=== PATIENT | female | born 1975 | race Caucasian/White ===

== ENCOUNTER 2020-01-05 10:38 | Outpatient (CLI) | payer OTHER, SELFPAY ==
--- NOTE | 2020-01-05 10:43 | MM_ITS ---
WS: [id number] SCREENING DIGITAL MAMMOGRAM WITH CAD HISTORY: SCREENING COMPARISON: 12/17/2018 and 12/04/2017 Bilateral CC and MLO views submitted. Computer aided detection analyzed. Breast composition: The breasts are heterogeneously dense, which may obscure small masses. Significan t portions of the lateral breast have not been included on this examination. On the LEFT MLO projecti on is an asymmetry posteriorly in the LEFT breast overlying the pectoralis muscle which needs further evaluation. The amount of compression may not be adequate. MM/[place] [id number] IMPRESSION: BI-RADS: 0-Incomplete: Need additional imaging evaluation FOLLOW UP: Need Additional Imaging Bilateral exaggerated lateral CC views are recommended in an attempt to include more breast tissue. Additional spot compression view LEFT MLO posteriorly kristin cent to the chest wall and bilateral ML views recommended. Better compression w ill also be attempted.
== END 2020-01-05 10:39 | disposition home or self-care (01) ==
LOC: RADSHAW 10:41
PROVIDERS: PCP Family Medicine; Visit Provider Nurse Practitioner Women's Health
DX: Z12.31 Encounter for screening mammogram for malignant neoplasm of breast (principal); N64.89 Other specified disorders of breast
CPT/HCPCS: 77067

== ENCOUNTER 2020-01-13 08:17 | Outpatient (CLI) | payer OTHER, SELFPAY ==
--- NOTE | 2020-01-13 08:30 | MM_ITS ---
WS: [id number] ADDITIONAL VIEWS BILATERAL MAMMOGRAM LEFT breast ultrasound, limited HISTORY: abnormal mammo COMPARISON: 01/05/2020, 12/17/2018 and 12/04/2017 Exaggerated lateral cranial caudad views. LEFT MLO and LEFT MLO spot. Exaggerated cc views submitted demonstrate more fibroglandular tissue. There is a benign calcificatio n laterally on the RIGHT. Area of mild increased density posterior LEFT breast at the level of the ni pple. Cannot confirm a mass or abnormality. Ultrasound will be performed of this area. LEFT breast ultrasound. Ultrasound is directed to the posterior LEFT breast along the pectoralis muscle. There are several sm all cysts identified posteriorly. The largest measures 1.2 x 0.8 x 1.0 cm at 1:00, 2 cm from the nipp le. There is an additional well-circumscribed hypoechoic nodule at 1:00, 4 cm from the nipple measuri ng 6 x 5 x 7 mm. There are additional smaller cysts. Both of these areas appear benign. MM/MM spot [facility] [place] [id number] IMPRESSION: BI-RADS: 3-Probably Benign FOLLOW UP: 6 Month Follow-up 6 month diagnostic mammogram and LEFT breast ultrasound are recommended. Favor benign process.
--- NOTE | 2020-01-13 09:10 | US_ITS ---
WS: [id number] ADDITIONAL VIEWS BILATERAL MAMMOGRAM LEFT breast ultrasound, limited HISTORY: abnormal mammo COMPARISON: 01/05/2020, 12/17/2018 and 12/04/2017 Exaggerated lateral cranial caudad views. LEFT MLO and LEFT MLO spot. Exaggerated cc views submitted demonstrate more fibroglandular tissue. There is a benign calcificatio n laterally on the RIGHT. Area of mild increased density posterior LEFT breast at the level of the ni pple. Cannot confirm a mass or abnormality. Ultrasound will be performed of this area. LEFT breast ultrasound. Ultrasound is directed to the posterior LEFT breast along the pectoralis muscle. There are several sm all cysts identified posteriorly. The largest measures 1.2 x 0.8 x 1.0 cm at 1:00, 2 cm from the nipp le. There is an additional well-circumscribed hypoechoic nodule at 1:00, 4 cm from the nipple measuri ng 6 x 5 x 7 mm. There are additional smaller cysts. Both of these areas appear benign. US/US breast LT limited* [id number] IMPRESSION: BI-RADS: 3-Probably Benign FOLLOW UP: 6 Month Follow-up 6 month diagnostic mammogram and LEFT breast ultrasound are recommended. Favor benign process.
== END 2020-01-13 08:18 | disposition home or self-care (01) ==
LOC: RADSHAW 08:19
PROVIDERS: PCP Family Medicine; Visit Provider Nurse Practitioner Women's Health
DX: R92.8 Other abnormal and inconclusive findings on diagnostic imaging of breast (principal); N63.21 Unspecified lump in the left breast, upper outer quadrant
CPT/HCPCS: 76642; 77066

== ENCOUNTER → 2020-02-24 16:07 | Outpatient (BNVA) | payer OTHER, SELFPAY | PROVIDERS: PCP Family Medicine; Visit Provider Nurse Practitioner Women's Health | DX: N91.2 Amenorrhea, unspecified (principal); Z01.419 Encounter for gynecological examination (general) (routine) without abnormal findings | CPT/HCPCS: 83001; 84450 ==

== ENCOUNTER 2020-03-16 09:29 | Outpatient (CLI) | payer OTHER, SELFPAY ==
--- NOTE | 2020-03-16 | CT_ITS ---
WS: [id number] CT TEMPORAL BONES WITHOUT CONTRAST HISTORY: TINNITUS, BILATERAL - DISORDER OF EUSTACHIAN TUBE TECHNIQUE: Axial 1.25 mm imaging is performed through the temporal bones. High resolution 0.63 mm ref ormats were then submitted in axial, coronal and sagittal planes. DLP: 1367.[address] scans at [facility] use at least one of these dose optimization techniques: automat ed exposure control; mA and/or kV adjustment per patient size (includes targeted exams where dose is matched to clinical indication); or iterative reconstruction. COMPARISON: None available. Symmetric appearance of the internal and external auditory canals and the temporal bones. There is no soft tissue surrounding the inner ear ossicles or extending into the auditory canal. Tegmen tympani is intact. No destruction of the bone. No fluid or soft tissue in the mastoid air cells. Normal appea jennifer of the parapharyngeal fat. Normal appearance of the torus tubarius. The visualized sinuses, orb its and globes and parotid glands are negative. Very mild atherosclerosis in the intracranial carotid arteries. CT/CT temporal bone wo con* [id number] IMPRESSION: Negative temporal bone CT.
== END 2020-03-16 09:30 | disposition home or self-care (01) ==
LOC: RADWPI 09:32
PROVIDERS: Family Provider Family Medicine; PCP Family Medicine; Visit Provider Specialist
DX: H93.13 Tinnitus, bilateral; H69.90 Unspecified Eustachian tube disorder, unspecified ear
CPT/HCPCS: 70480

== ENCOUNTER 2020-07-17 09:08 | Outpatient (CLI) | payer OTHER, SELFPAY ==
--- NOTE | 2020-07-17 09:30 | MM_ITS ---
WS: [id number] DIAGNOSTIC LEFT DIGITAL MAMMOGRAM WITH CAD LEFT breast ultrasound, limited HISTORY: 6 month diagnostic mammogram and LEFT breast ultrasound COMPARISON: 01/13/2020, 01/05/2020, 12/17/2018 Technique: CC, MLO and ML views. Breast composition: The breasts are heterogeneously dense, which may obscure small masses. Normal bi lateral fibroglandular pattern. The incompletely visualized asymmetry in the posterior LEFT breast is not visualized today. LEFT breast ultrasound, limited. LEFT breast at 1:00, 4 cm from the nipple demonstrates a hypoechoic mass measuring 1.0 x 0.6 x 0.7 cm . Additional hypoechoic mass 3 cm the nipple at 1:00. There is a cyst at 1:00 2 cm from the nipple. MM/[place] [id number] IMPRESSION: BI-RADS: 3-Probably Benign FOLLOW UP: 6 Month Follow-up Patient to return in 6 months for diagnostic mammogram in December 2019. Ultrasound should be performed of the 1:00 axis of the LEFT breast to reevaluate the comb ination of solid and cystic nodules.
--- NOTE | 2020-07-17 10:15 | US_ITS ---
WS: [id number] DIAGNOSTIC LEFT DIGITAL MAMMOGRAM WITH CAD LEFT breast ultrasound, limited HISTORY: 6 month diagnostic mammogram and LEFT breast ultrasound COMPARISON: 01/13/2020, 01/05/2020, 12/17/2018 Technique: CC, MLO and ML views. Breast composition: The breasts are heterogeneously dense, which may obscure small masses. Normal bi lateral fibroglandular pattern. The incompletely visualized asymmetry in the posterior LEFT breast is not visualized today. LEFT breast ultrasound, limited. LEFT breast at 1:00, 4 cm from the nipple demonstrates a hypoechoic mass measuring 1.0 x 0.6 x 0.7 cm . Additional hypoechoic mass 3 cm the nipple at 1:00. There is a cyst at 1:00 2 cm from the nipple. US/US breast LT limited* [id number] IMPRESSION: BI-RADS: 3-Probably Benign FOLLOW UP: 6 Month Follow-up Patient to return in 6 months for diagnostic mammogram in December 2019. Ultrasound should be performed of the 1:00 axis of the LEFT breast to reevaluate the comb ination of solid and cystic nodules.
== END 2020-07-17 09:09 | disposition home or self-care (01) ==
LOC: RADSHAW 09:10
PROVIDERS: PCP Family Medicine; Visit Provider Nurse Practitioner Women's Health
DX: R92.8 Other abnormal and inconclusive findings on diagnostic imaging of breast (principal)
CPT/HCPCS: 76642; 77065

== ENCOUNTER 2021-01-17 14:09 | Outpatient (CLI) | payer OTHER, SELFPAY ==
--- NOTE | 2021-01-17 14:18 | US_ITS ---
WS: [id number] BILATERAL DIGITAL DIAGNOSTIC MAMMOGRAM MAMMOGRAPHY WITH CAD CLINICAL INFORMATION: R92.8 - Other abnormal and inconclusive findings on diagnostic imaging of breas t COMPARISON: 01/13/2020 and 07/17/2020 TECHNIQUE: Bilateral CC, MLO, and ML views. FINDINGS: The breasts are composed of heterogeneous fibroglandular density, which can limit the detection of sm all underlying mass lesions. Dense nodular breast parenchyma left breast appears unchanged. A few inc idental calcifications. Ultrasound LEFT breast is pending. 7 mm ovoid nodular density RIGHT breast best seen on the MLO view. This may represent a small cyst bu t indeterminant. Recommend further evaluation with spot compression views and ultrasound. This is new from previous. ULTRASOUND BREAST LEFT TECHNIQUE: Ultrasound left breast focused area of concern. CLINICAL INFORMATION: R92.8 - Other abnormal and inconclusive findings on diagnostic imaging of breas t FINDINGS: Ultrasound left breast at the 1:00 position. Again seen are several cystic and a solid nodule at the 1:00 position. A few incidental simple cysts the largest measuring 9.7 x 11.0 x 7.7 mm appears stable . Hypoechoic solid nodule at the 1:00 position 4 cm from the nipple measuring 5.4 x 4.5 x 3.8 mm appear s stable considering differences in technique. Recommend additional six-month follow-up to ensure sta bility. US/US breast LT limited* [id number] IMPRESSION: 1. RIGHT BREAST: BI-RADS: 0-Incomplete: Need additional imaging evaluation FOLLOW UP: Need Additional Imaging RECOMMEND RIGHT BREAST DIAGNOSTIC MAMMOGRAPHY AND ULTRASOUND FOR EVALUATION OF THE NEW ASYMMETRIC NODULAR DENSITY 2. LEFT BREAST: BI-RADS 3 Probably benign RECOMMEND 6 MONTH FOLLOW-UP LEFT DIAGNOSTIC MAMMOGRAPHY AND ULTRASOUND
--- NOTE | 2021-01-17 14:30 | MM_ITS ---
WS: [id number] BILATERAL DIGITAL DIAGNOSTIC MAMMOGRAM MAMMOGRAPHY WITH CAD CLINICAL INFORMATION: R92.8 - Other abnormal and inconclusive findings on diagnostic imaging of breas t COMPARISON: 01/13/2020 and 07/17/2020 TECHNIQUE: Bilateral CC, MLO, and ML views. FINDINGS: The breasts are composed of heterogeneous fibroglandular density, which can limit the detection of sm all underlying mass lesions. Dense nodular breast parenchyma left breast appears unchanged. A few inc idental calcifications. Ultrasound LEFT breast is pending. 7 mm ovoid nodular density RIGHT breast best seen on the MLO view. This may represent a small cyst bu t indeterminant. Recommend further evaluation with spot compression views and ultrasound. This is new from previous. ULTRASOUND BREAST LEFT TECHNIQUE: Ultrasound left breast focused area of concern. CLINICAL INFORMATION: R92.8 - Other abnormal and inconclusive findings on diagnostic imaging of breas t FINDINGS: Ultrasound left breast at the 1:00 position. Again seen are several cystic and a solid nodule at the 1:00 position. A few incidental simple cysts the largest measuring 9.7 x 11.0 x 7.7 mm appears stable . Hypoechoic solid nodule at the 1:00 position 4 cm from the nipple measuring 5.4 x 4.5 x 3.8 mm appear s stable considering differences in technique. Recommend additional six-month follow-up to ensure sta bility. MM/[place] [id number] IMPRESSION: 1. RIGHT BREAST: BI-RADS: 0-Incomplete: Need additional imaging evaluation FOLLOW UP: Need Additional Imaging RECOMMEND RIGHT BREAST DIAGNOSTIC MAMMOGRAPHY AND ULTRASOUND FOR EVALUATION OF THE NEW ASYMMETRIC NODULAR DENSITY 2. LEFT BREAST: BI-RADS 3 Probably benign RECOMMEND 6 MONTH FOLLOW-UP LEFT DIAGNOSTIC MAMMOGRAPHY AND ULTRASOUND
== END 2021-01-17 14:10 | disposition home or self-care (01) ==
LOC: RADSHAW 14:13
PROVIDERS: PCP Family Medicine; Visit Provider Nurse Practitioner Women's Health
DX: R92.8 Other abnormal and inconclusive findings on diagnostic imaging of breast (principal); N63.22 Unspecified lump in the left breast, upper inner quadrant
CPT/HCPCS: 76642; 77066

== ENCOUNTER 2021-01-29 13:06 | Outpatient (CLI) | payer OTHER, SELFPAY ==
--- NOTE | 2021-01-29 13:12 | US_ITS ---
WS: [id number] RIGHT DIGITAL MAMMOGRAPHY WITH CAD CLINICAL INFORMATION: R92.8 - Other abnormal and inconclusive findings on diagn.. TECHNIQUE: 3 views of the right breast were obtained. FINDINGS: The right breast is composed of heterogeneous fibroglandular density tissue, which can limit the dete ction of small underlying mass lesions. 7 mm ovoid nodular density RIGHT breast best seen on the MLO view is unchanged. Ultrasound is pending. ULTRASOUND BREAST RIGHT TECHNIQUE: Ultrasound right breast focused area of concern. CLINICAL INFORMATION: R92.8 - Other abnormal and inconclusive findings on diagn... FINDINGS: Ultrasound right breast at the 12 to 3:00 position. At the 1:00 position is a hypoechoic lesion measu ring approximately 6.0 3.6 x 4.1 mm which likely represents a complex cyst or small area of ductal ec katlyn with internal debris. This is probably benign. Recommend six-month follow-up to ensure stabilit y. US/US breast RT limited* [id number] IMPRESSION: BI-RADS: 3-Probably Benign FOLLOW UP: 6 Month Follow-up RECOMMEND 6 MONTH FOLLOW-UP RIGHT DIAGNOSTIC MAMMOGRAPHY AND ULTRASOUND
== END 2021-01-29 13:07 | disposition home or self-care (01) ==
LOC: RADSHAW 13:08
PROVIDERS: PCP Family Medicine; Visit Provider Nurse Practitioner Women's Health
DX: R92.8 Other abnormal and inconclusive findings on diagnostic imaging of breast (principal)
CPT/HCPCS: 76642; 77065

== ENCOUNTER 2021-08-22 13:30 | Outpatient (CLI) | payer OTHER, SELFPAY ==
--- NOTE | 2021-08-22 13:39 | MM_ITS ---
WS: [id number] RIGHT 3D TOMOSYNTHESIS DIGITAL MAMMOGRAPHY WITH CAD CLINICAL INFORMATION: R92.8 - Other abnormal and inconclusive findings on diagn... COMPARISON: January 29, 2021 TECHNIQUE: 4 views of the right breast were obtained. FINDINGS: The right breast is composed of heterogeneous fibroglandular density tissue, which can limit the dete ction of small underlying mass lesions. Stable 7 mm ovoid density RIGHT breast best seen on the MLO v iew. This appears unchanged. Ultrasound is pending. ULTRASOUND BREAST RIGHT TECHNIQUE: Ultrasound right breast focused area of concern. CLINICAL INFORMATION: R92.8 - Other abnormal and inconclusive findings on diagn... COMPARISON: January 29, 2021 FINDINGS: Ultrasound RIGHT breast at the 1:00 position 1 cm from the nipple. Again seen is the hypoechoic lesio n measuring 5.4 x 4.5 x 4.2 mm with a small amount of internal debris. No internal vascularity. This is unchanged in appearance since 2020 and likely represents a complex cyst or dilated duct wit h some internal debris. MM/[place] [id number] IMPRESSION: BI-RADS: 3-Probably Benign FOLLOW UP: 6 Month Follow-up Recommend additional six-month follow-up RIGHT breast diagnostic mammography an d ultrasound to confirm stability.
== END 2021-08-22 13:31 | disposition home or self-care (01) ==
LOC: RADSHAW 13:35
PROVIDERS: PCP Family Medicine; Visit Provider Nurse Practitioner Women's Health
DX: R92.8 Other abnormal and inconclusive findings on diagnostic imaging of breast (principal)
CPT/HCPCS: 76642; 77061

== ENCOUNTER → 2021-12-20 09:28 | Outpatient (BNVA) | payer OTHER, SELFPAY | PROVIDERS: PCP Family Medicine; Visit Provider Family Medicine | DX: Z00.00 Encounter for general adult medical examination without abnormal findings (principal); R53.83 Other fatigue | CPT/HCPCS: 80053; 80061; 82607; 84443; 85025 ==

== ENCOUNTER 2022-01-30 12:30 | Outpatient (CLI) | payer OTHER, SELFPAY | END 2022-01-30 12:31 | disposition home or self-care (01) | LOC: SLEEP 01-31 13:06 | PROVIDERS: PCP Family Medicine; Visit Provider Family Medicine | DX: G47.33 Obstructive sleep apnea (adult) (pediatric) (principal) | CPT/HCPCS: G0399 ==

== ENCOUNTER 2022-03-07 07:52 | Outpatient (CLI) | payer OTHER, SELFPAY ==
--- NOTE | 2022-03-07 07:58 | MM_ITS ---
WS: [id number] BILATERAL 3D TOMOSYNTHESIS DIGITAL DIAGNOSTIC MAMMOGRAPHY WITH CAD CLINICAL INFORMATION: R92.8 - Other abnormal and inconclusive findings on diagn... HISTORY: Six-month follow-up COMPARISON: 01/17/21 and August 22, 2021 TECHNIQUE: Bilateral CC, MLO, and ML views. FINDINGS: The breasts are composed of heterogeneous fibroglandular density, which can limit the detection of sm all underlying mass lesions. Dense nodular breast parenchyma appears unchanged. A few incidental punc cardona calcifications. ULTRASOUND BREAST BILATERAL TECHNIQUE: Ultrasound bilateral breast focused area of concern. CLINICAL INFORMATION: R92.8 - Other abnormal and inconclusive findings on diagn... FINDINGS: RIGHT BREAST: Stable incidental cyst at the 1:00 position measuring 0.5 x 0.5 x 0.4 cm is stable. LEFT BREAST: Complex lesion at the 1:00 position 4 cm from the nipple is stable compared to 202 thomas uring 0.4 x 0.6 x 0.4 cm likely complex cyst or dilated duct with debris. Additional complex cystic small lesions at the 1:00 position 2 cm from the nipple and 3 cm from the n ipple are stable compared to 202 measuring 1.2 x 1.1 x 0.7 cm and 0.4 x 0.5 x 0.4 CM. MM/[place] [id number] IMPRESSION: BI-RADS: 2-Benign FOLLOW UP: 1 Year Follow-up Recommend return to annual screening mammography.
== END 2022-03-07 07:53 | disposition home or self-care (01) ==
LOC: RAD 07:53
PROVIDERS: PCP Family Medicine; Visit Provider Nurse Practitioner Women's Health
DX: R92.8 Other abnormal and inconclusive findings on diagnostic imaging of breast (principal)
CPT/HCPCS: 76642; 77062

== ENCOUNTER → 2022-10-07 12:26 | Outpatient (BNVA) | payer OTHER, SELFPAY | PROVIDERS: PCP Family Medicine; Visit Provider Clinical Nurse Specialist Adult Health | DX: R53.83 Other fatigue (principal); R06.02 Shortness of breath | CPT/HCPCS: 80053; 85025; 85651; 86140 ==

== ENCOUNTER 2023-03-19 13:38 | Outpatient (CLI) | payer OTHER, SELFPAY ==
--- NOTE | 2023-03-19 13:45 | MM_ITS ---
WS: [id number] Bilateral screening 3D tomosynthesis digital mammogram, 03/19/2023 Clinical Data: SCREENING Comparison: 02/03/2022, 08/22/2021, 01/29/2021, 01/17/2021, 07/17/2020, 01/13/2020, 01/05/2020, 12/17/2018, 11/08, 11/27/2016, 11/16/2015, 10/25/2014, 09/10/2013, 08/19/2013. Findings: The breast parenchymal pattern shows heterogeneous density. No spiculated masses or clustered calcifi cations are seen. There are no secondary signs of carcinoma. Impression: 1. Negative bilateral mammogram unchanged. 2. Recommend annual screening mammograms. MM/[place] [id number] BIRADS: 1-Negative FOLLOW UP: 1 Year Follow-up The CAD mechanical car checker was used.
== END 2023-03-19 13:39 | disposition home or self-care (01) ==
LOC: MOBLMAM 13:46
PROVIDERS: PCP Family Medicine; Visit Provider Nurse Practitioner Women's Health
DX: Z12.31 Encounter for screening mammogram for malignant neoplasm of breast (principal)
CPT/HCPCS: 77063; 77067

== ENCOUNTER → 2023-03-25 16:35 | Outpatient (BNVA) | payer OTHER, SELFPAY | PROVIDERS: PCP Family Medicine; Visit Provider Nurse Practitioner Women's Health | DX: Z01.419 Encounter for gynecological examination (general) (routine) without abnormal findings (principal) | CPT/HCPCS: 87624; 88175 ==

== ENCOUNTER 2023-12-23 09:22 | Day surgery (SDC) | payer OTHER, SELFPAY ==
[2023-12-23 09:30] VITALS: BMI 30.1
[2023-12-23 09:35] VITALS: BP 126/103; PULSE 83; RESP 18; TEMP 36.6; O2SAT 100
[2023-12-23] MEDS: sodium chloride 0.9% 1,000 ML 30 ML IV (09:37)
--- NOTE | 2023-12-23 09:38 | W.PM.OPSFHP ---
Same Day Surgery H&P Indication for Procedure/HPI DATE OF PROCEDURE: December 23, 2023 CHIEF COMPLAINT/INDICATIONFOR SURGICAL PROCEDURE: need for screening colonoscopy PREOP DIAGNOSIS: need for screening colonoscopy PLANNED PROCEDURE: Operation Date: 12/23/23 11:05 Proposed Procedures p Colonoscopy 25745, G0121, Z12.11(Not Applicable) - Rayo Yu MD Medications/Allergies* Home Medications Medication Instructions Recorded Confirmed Type Lactobacillus acidophilus 1 tab PO DAILY 03/01/21 12/19/23 History (Acidophilus chewable tablet) azelastine 137 mcg (0.1 %) nasal intranasal 11/04/23 11/04/23 History spray cetirizine 10 mg tablet 10 mg PO DAILY 12/19/23 12/19/23 History multivitamin with minerals 1 tab PO DAILY 12/19/23 12/19/23 History Allergies/Adverse Reactions Allergy/AdvReac Type Severity Reaction Status Date / Time Penicillins Allergy Mild rash Verified 11/04/23 08:00 Current Medications: Generic Name Dose Route Start Last Admin Trade Name Freq PRN Reason Stop Dose Admin Sodium Chloride 1,000 mls @ 30 mls/hr 12/23/23 09:30 12/23/23 09:37 Sodium Chloride 0.9% IV 12/24/23 09:29 30 mls/hr .Q24H NAS Administration Pertinent History/Comorbid Conditions* Medical History (Updated 10/08/23 @ 18:52 by Robel Morales DO) No pertinent past medical history neghx:htn,dm,thyroid,dvt/pe PCP: Andrew Anxiety Irritable bowel syndrome (IBS) switches back and forth from diarrhea and constipation Surgical History (Updated 02/24/20 @ 15:33 by Tabitha Flores APN, WHNP) [place] teeth extracted (1996) H/O tubal ligation (10/28/03) bilateral tubal ligation. Performed by Dr. Mazin Ferguson at [facility] in [place], [place]. Family History (Updated 03/05/22 @ 14:33 by hTu Turner) Heart disease Father Stroke Mother Denies family history of Colon cancer Ovarian cancer Hyperlipidemia Breast cancer Family history of thyroid problem Hypertension Uterine cancer Pertinent Exam Findings alert, oriented x 3, clear to auscultation bilaterally and regular rate & rhythm Recommendations Surgery/Procedure today Coding Level of Care Code Acute Code for Chg Fwd
--- NOTE | 2023-12-23 09:52 | P.ANESASSM_ITS ---
Pre-Anesthetic Assessment Height/Weight: Height 1.6 m Weight 77.111 kg Temp Pulse Resp BP Pulse Ox O2 Del Method 97.9 F 83 18 126/103 100 Room Air 12/23/23 09:35 12/23/23 09:35 12/23/23 09:35 12/23/23 09:35 12/23/23 09:35 12/23/23 09:35 Preop Diagnosis: need for screening colonoscopy Operation Date: 12/23/23 11:05 Proposed Procedures p Colonoscopy 81263, G0121, Z12.11(Not Applicable) - Rayo Yu MD Familial anesthetic complications: None Was Beta Angelito taken within 24 hours: N/A Was Clonidine taken within 24 hours: N/A Last intake: Intake Last Liquid Date 12/22/23 Last Liquid Time 23:50 Last Solid Date 12/21/23 Social No alcohol and No tobacco Exam alert, oriented x 3, clear to auscultation bilaterally and regular rate & rhythm Airway Mallampati: Class I Dentition: full GI Gastroesophageal Reflux Disease IBS Anesthetic Plan ASA status: 2 Anesthesia: MAC Risk of > 500 ml blood loss (7ml/kg in children): No Medications/Allergies Home Medications Medication Instructions Recorded Confirmed Last Taken Type Lactobacillus acidophilus 1 tab PO DAILY 03/01/21 12/19/23 12/22/23 History (Acidophilus chewable tablet) pantoprazole 20 mg tablet,delayed 20 mg PO DAILY PRN for stomach #90 04/01/23 12/19/23 12/22/23 Rx release tabs azelastine 137 mcg (0.1 %) nasal intranasal 11/04/23 11/04/23 1 Month Ago History spray ~11/19/23 bisacodyl 5 mg tablet,delayed 5 mg PO DAILY #4 tabs 11/04/23 12/23/23 12/22/23 Rx release (Dulcolax (bisacodyl)) magnesium citrate 300 ml PO DAILY PRN constipation 11/04/23 12/23/23 12/22/23 Rx #296 mL cetirizine 10 mg tablet 10 mg PO DAILY 12/19/23 12/19/23 12/21/23 History multivitamin with minerals 1 tab PO DAILY 12/19/23 12/19/23 12/21/23 History Allergies Allergy/AdvReac Type Severity Reaction Status Date / Time Penicillins Allergy Mild rash Verified 12/23/23 09:43 Current Medications Generic Name Dose Route Start Last Admin Trade Name Freq PRN Reason Stop Dose Admin Sodium Chloride 1,000 mls @ 30 mls/hr 12/23/23 09:30 12/23/23 09:37 Sodium Chloride 0.9% IV 12/24/23 09:29 30 mls/hr .Q24H NAS Administration PFSH Anesthesia Medical History No pertinent past medical history neghx:htn,dm,thyroid,dvt/pe PCP: Andrew Luz Irritable bowel syndrome (IBS) switches back and forth from diarrhea and constipation Surgical History [place] teeth extracted (1996) H/O tubal ligation (10/28/03) bilateral tubal ligation. Performed by Dr. Mazin Ferguson at [facility] in [place], [place]. Family History Mother Stroke Father Heart disease Denies family history of Colon cancer Ovarian cancer Hyperlipidemia Breast cancer Family history of thyroid problem Hypertension Uterine cancer Data Anesthesia Cardiac Studies: No Data to Display
[2023-12-23 11:14] VITALS: BP 135/90; PULSE 60; RESP 20; TEMP 36.4; O2SAT 99
[2023-12-23 11:25] VITALS: BP 135/85; PULSE 70; RESP 16; O2SAT 96
--- NOTE | 2023-12-23 11:35 | ANE.PACU2 ---
Inpatient post-anesthesia follow up: Airway intact: Yes Vital signs: Temperature 97.5 F Pulse Rate 70 Respiratory Rate 16 Blood Pressure 135/85 Pulse Oximetry 96 Oxygen Delivery Me thod Room Air Oxygen Flow Rate Fraction of Inspir ed Oxygen Hydration adequate: Yes Nausea and vomiting: No Pain level: 1 Mental status: Baseline
== END 2023-12-23 11:39 | disposition home or self-care (01) ==
PROVIDERS: PCP Family Medicine; Visit Provider Surgery
PROC: 0DJD8ZZ Inspection of Lower Intestinal Tract, Via Natural or Artificial Opening Endoscopic (ICD-10-PCS; CPT 45378; principal; 2023-12-23 11:05)
DX: Z12.11 Encounter for screening for malignant neoplasm of colon (principal); F41.9 Anxiety disorder, unspecified; K63.5 Polyp of colon; D12.8 Benign neoplasm of rectum; K21.9 Gastro-esophageal reflux disease without esophagitis
CPT/HCPCS: 45380; 88305; J2704; J7030

== ENCOUNTER → 2024-01-01 14:41 | Outpatient (BNVA) | payer OTHER, SELFPAY | PROVIDERS: PCP Family Medicine; Visit Provider Family Medicine | DX: Z00.00 Encounter for general adult medical examination without abnormal findings (principal); E03.9 Hypothyroidism, unspecified; R53.83 Other fatigue | CPT/HCPCS: 80053; 80061; 84443 ==

== ENCOUNTER 2024-03-31 09:39 | Outpatient (CLI) | payer OTHER, SELFPAY ==
--- NOTE | 2024-03-31 09:40 | MM_ITS ---
WS: [id number] SCREENING DIGITAL BREAST TOMOSYNTHESIS MAMMOGRAM WITH CAD HISTORY: SCREENING COMPARISON: 03/19/2023, 03/07/2022, 01/17/2021 Bilateral CC and MLO with tomosynthesis and synthetic mammography submitted. Computer aided detection analyzed. Breast composition: The breasts are heterogeneously dense, which may obscure small masses. Focal asym metry with very slight distortion in the medial LEFT breast at a middle depth. Similar findings on th e prior examination but appears more prominent on today's study. No corresponding finding on the late ral projection. Benign calcifications in each breast. MM/MM scr BI tomosynthesis [id number] IMPRESSION: BI-RADS: 0 - Incomplete: Need additional imaging evaluation FOLLOW UP: Need Additional Imaging LEFT breast: Spot compression views (CC and MLO). True ML. Ultrasound to follow if abnormality persists.
== END 2024-03-31 09:40 | disposition home or self-care (01) ==
LOC: MOBLMAM 09:40
PROVIDERS: PCP Family Medicine; Visit Provider Family Medicine
DX: Z12.31 Encounter for screening mammogram for malignant neoplasm of breast (principal); R92.333 Mammographic heterogeneous density, bilateral breasts; N64.89 Other specified disorders of breast; R92.1 Mammographic calcification found on diagnostic imaging of breast
CPT/HCPCS: 77063; 77067

== ENCOUNTER 2024-05-11 13:19 | Outpatient (CLI) | payer OTHER, SELFPAY ==
--- NOTE | 2024-05-11 13:30 | MM_ITS ---
WS: [id number] ADDITIONAL VIEWS LEFT MAMMOGRAM WITH DIGITAL BREAST TOMOSYNTHESIS. HISTORY: Abnormal asymmetry on screening mammogram LEFT breast. COMPARISON: 03/31/2024, 03/19/2023, 03/07/2022 and 01/17/2021 Spot compression views LEFT breast in CC, MLO projections and true ML submitted with digital breast t omosynthesis and SM. The asymmetry previously identified on the screening mammogram in the medial LEFT breast does not per sist on additional imaging. Consistent with superimposed fibroglandular asymmetric tissue. There are no areas of distortion. MM/MM diag [place] tomosynthesis [id number] IMPRESSION: BI-RADS: 2- Benign FOLLOW UP: 1 Year Follow-up Return to annual screening mammography.
== END 2024-05-11 13:20 | disposition home or self-care (01) ==
LOC: RAD 13:19
PROVIDERS: PCP Family Medicine; Visit Provider Nurse Practitioner Women's Health
DX: R92.8 Other abnormal and inconclusive findings on diagnostic imaging of breast (principal)
CPT/HCPCS: 77061; G0279

== ENCOUNTER → 2025-01-03 13:13 | Outpatient (BNVA) | payer OTHER, SELFPAY | PROVIDERS: PCP Family Medicine; Visit Provider Family Medicine | DX: Z00.00 Encounter for general adult medical examination without abnormal findings (principal) | CPT/HCPCS: 80053; 80061 ==

== ENCOUNTER 2025-04-01 13:37 | Outpatient (CLI) | payer OTHER, SELFPAY ==
--- NOTE | 2025-04-01 13:40 | MM_ITS ---
WS: [id number] BILATERAL 3D TOMOSYNTHESIS DIGITAL SCREENING MAMMOGRAPHY WITH CAD CLINICAL INFORMATION: SCREENING HISTORY: Screening mammogram. No current complaints. COMPARISON: 2023 TECHNIQUE: Bilateral CC and MLO views. FINDINGS: The breasts are composed of heterogeneous fibroglandular density tissue, which can limit the detection of small underlying mass lesions. No suspicious mass, asymmetry, calcifications, or architectural distortion. No evidence of malignancy. Punctate and lucent centered calcifications. MM/MM [facility] tomosynthesis [id number] IMPRESSION: DENSITY: The breasts are heterogeneously dense, which may obscure small masses. BI-RADS: 2 - Benign FOLLOW UP: 1 Year Follow-up Recommend return to annual screening mammography.
== END 2025-04-01 13:38 | disposition home or self-care (01) ==
LOC: RAD 13:38
PROVIDERS: PCP Family Medicine; Visit Provider Nurse Practitioner Women's Health
DX: Z12.31 Encounter for screening mammogram for malignant neoplasm of breast (principal); R92.333 Mammographic heterogeneous density, bilateral breasts; R92.323 Mammographic fibroglandular density, bilateral breasts; R92.1 Mammographic calcification found on diagnostic imaging of breast
CPT/HCPCS: 77063; 77067

== ENCOUNTER → 2025-05-02 11:10 | Outpatient (BNVA) | payer OTHER, SELFPAY | PROVIDERS: PCP Family Medicine; Visit Provider Nurse Practitioner Women's Health | DX: Z01.89 Encounter for other specified special examinations (principal); R53.83 Other fatigue | CPT/HCPCS: 82306 ==

== ENCOUNTER 2025-05-10 13:50 | Outpatient (CLI) | payer OTHER, SELFPAY ==
--- NOTE | 2025-05-10 14:00 | XR_ITS ---
WS: [id number] SCREENING DEXA SCAN [facility] CLINICAL INFORMATION: Z78.0 - Asymptomatic menopausal state COMPARISON: None. FINDINGS: The L1-L4 bone mineral density measures 1.061 g/cm2. This corresponds to a T score score of -1.0 and Z score of -0.7. Left femoral neck bone mineral density measures 0.822 g/cm2. This corresponds to a T score of -1.5 and Z score of -1.1. Right femoral neck bone mineral density measures 0.839 g/cm2. This corresponds to a T score -1.3of and Z score of -1.0. Mean femoral neck bone mineral density measures 0.831 g/cm2. This corresponds to a T score of -1.4 and Z score of -1.1. XR/XR DEXA axial skeleton* [id number] IMPRESSION: Osteopenia lumbar spine. Osteopenia femoral necks. Patient's FRAX calculated 10 year probability for major osteoporotic fracture i s 5.4% and osteoporotic hip fracture is 0.4%.
== END 2025-05-10 13:51 | disposition home or self-care (01) ==
LOC: RAD 13:51
PROVIDERS: PCP Family Medicine; Visit Provider Nurse Practitioner Women's Health
DX: Z13.820 Encounter for screening for osteoporosis (principal); Z78.0 Asymptomatic menopausal state; M85.89 Other specified disorders of bone density and structure, multiple sites
CPT/HCPCS: 77080